=== PATIENT | female | born 1990 | race Caucasian/White ===

== ENCOUNTER 2020-07-30 15:49 | Outpatient (CLI) | payer OTHER ==
--- NOTE | 2020-07-31 11:03 | XRAY Report ---
PROCEDURE: Chest 2 View X-Ray INDICATIONS: TB TESTING TECHNIQUE: 2 view(s) of the chest. COMPARISON: None. FINDINGS: Surgical changes and devices: None. Lungs and pleura: No pleural effusions or pneumothorax. Lungs are clear. Mediastinum: Mediastinal contours are normal. Heart size is normal. Bones and chest wall: No suspicious bony abnormalities. Soft tissues appear unremarkable. IMPRESSION: No evidence of acute or chronic tuberculosis, the study is normal for age. Reviewed by: Aubrey Paredes MD on 07/31/2020 11:02 AM PDT Approved by: Aubrey Paredes MD on 07/31/2020 11:02 AM PDT Station ID: [id number]
== END 2020-07-30 15:50 | disposition home or self-care (01) ==
LOC: LAB 15:49 → DI 15:50
PROVIDERS: ATTEND Emergency Medicine
DX: Z02.1 Encounter for pre-employment examination (principal); Z11.1 Encounter for screening for respiratory tuberculosis
CPT/HCPCS: 86317; 86787

== ENCOUNTER 2020-09-01 12:43 | Outpatient (CLI) | payer OTHER ==
--- NOTE | 2020-09-01 13:54 | Ultrasound Report ---
PROCEDURE: OB First Trimester w/TV INDICATIONS: POSITIVE TEST OUTSIDE/PRIOR DATING DATA: Last menstrual period (LMP): 07/04/2020. LMP-based estimated date of delivery (EARLINE): 04/10/2021. First dating scan (date and location): 09/01/2020. Estimated date of delivery (EARLINE) from first dating scan: 04/25/2021. The below data below was generated using the sonographically derived EARLINE of 04/25/2021 TECHNIQUE: Real-time scanning was performed of the fetus and maternal pelvic organs, with image documentation. Endovaginal scanning was also performed to better visualize the fetus and maternal ovaries. COMPARISON: None. FINDINGS: Embryo: There is a intrauterine gestational sac containing a pole with estimated sonographic g estational age of approximately 6 weeks and 2 days based off crown-rump length measuring approximatel y 0.49 cm. Gestational sac appears slightly irregular. A yolk sac is visualized. No perigestational h emorrhage seen. Heart rate: No cardiac activity visualized. Measurement variability in dating: +/- 4 weeks by LMP, +/- 7 days by mean sac diameter (use before 6 weeks gestation if crown-rump length not able to be measured), +/- 5 days by crown-rump length (6-12 weeks gestation). Maternal organs: Bilateral maternal ovaries appear unremarkable. Incidental 2.0 cm right corpus lutea l cyst.. Maternal cervix appears long and closed. IMPRESSION: 1. Single intrauterine gestation with estimated sonographic gestational age of approximately 6 weeks and 2 days based off crown-rump length measurement. No detectable cardiac activity on today's s tudy. Reported quantitative hCG levels have been increasing. Recommend continued clinical and laborat ory surveillance. Recommend follow-up ultrasound in approximately 12-14 days to document expected pro gression of a normal intrauterine . Reviewed by: Sean Freeman MD on 09/01/2020 1:53 PM PDT Approved by: Sean Freeman MD on 09/01/2020 1:53 PM PDT Station ID: [id number]
== END 2020-09-01 12:44 | disposition home or self-care (01) ==
LOC: DI 12:43
PROVIDERS: ATTEND Obstetrics & Gynecology
DX: Z32.01 Encounter for pregnancy test, result positive (principal)

== ENCOUNTER 2020-10-31 16:48 | Outpatient (CLI) | payer OTHER ==
[2020-10-31 17:17] LABS: HCT - HEMATOCRIT 40.9 % (37.0-47.0); HGB - HEMOGLOBIN 13.6 g/dL (12.0-16.0); MEAN CORPUSCULAR HEMOGLOBIN 28.5 pg (27.0-31.0); MEAN CORPUSCULAR HGB CONC 33.3 g/dL (32.0-36.0); MEAN CORPUSCULAR VOLUME 85.6 fL (81.0-99.0); MEAN PLATELET VOLUME 10.6 fL (7.9-10.8); RED BLOOD COUNT 4.78 10^6/uL (4.20-5.40); RED CELL DISTRIBUTION WIDTH 13.4 % (12.0-15.0)
[2020-10-31 17:31] LABS: ALBUMIN 4.3 g/dL (3.2-5.5); ALBUMIN/GLOBULIN RATIO 1.4 (1.0-2.2); BILIRUBIN,TOTAL 0.4 mg/dL (0.2-1.0); CALCIUM 9.2 mg/dL (8.5-10.3); CREATININE 0.8 mg/dL (0.4-1.0); POTASSIUM 3.8 mmol/L (3.5-5.0); TOTAL PROTEIN 7.4 g/dL (6.7-8.2)
[2020-10-31 17:49] LABS: THYROID STIMULATING HORMONE 2.28 uIU/mL (0.34-5.60)
[2020-10-31 17:51] LABS: FREE T4 (FREE THYROXINE) 0.75 ng/dL (0.58-1.64)
[2020-10-31 17:55] LABS: PROLACTIN 11.95 ng/mL
[2020-10-31 21:30] LABS: ESTIMATED AVERAGE GLUCOSE 105 mg/dL (70-100); HEMOGLOBIN A1c% 5.3 % (4.27-6.07)
== END 2020-10-31 16:49 | disposition home or self-care (01) ==
LOC: LAB 16:48
PROVIDERS: ATTEND Obstetrics & Gynecology
DX: Z00.00 Encounter for general adult medical examination without abnormal findings (principal); Z13.1 Encounter for screening for diabetes mellitus; O03.9 Complete or unspecified spontaneous abortion without complication; Z13.21 Encounter for screening for nutritional disorder; Z13.29 Encounter for screening for other suspected endocrine disorder
CPT/HCPCS: 36415; 80053; 82306; 83036; 84146; 84439; 84443; 84702; 85027; 86762

== ENCOUNTER 2021-06-27 13:47 | Outpatient (CLI) | payer OTHER | END 2021-06-27 13:48 | disposition home or self-care (01) | LOC: LAB 13:47 | PROVIDERS: ATTEND Obstetrics & Gynecology | DX: Z32.01 Encounter for pregnancy test, result positive (principal) | CPT/HCPCS: 36415; 84702 ==

== ENCOUNTER 2021-07-07 08:59 | Outpatient (CLI) | payer OTHER | END 2021-07-07 09:00 | disposition home or self-care (01) | LOC: LAB 08:59 | PROVIDERS: ATTEND Obstetrics & Gynecology | DX: Z32.01 Encounter for pregnancy test, result positive (principal) | CPT/HCPCS: 36415; 84702 ==

== ENCOUNTER 2021-07-14 10:10 | Outpatient (CLI) | payer OTHER ==
--- NOTE | 2021-07-15 10:38 | Ultrasound Report ---
PROCEDURE: OB First Trimester w/TV INDICATIONS: VAG BLEEDING IN OUTSIDE/PRIOR DATING DATA: Last menstrual period (LMP): 05/28/2021. LMP-based estimated date of delivery (EARLINE): 03/04/2022. TECHNIQUE: Real-time scanning was performed of the fetus and maternal pelvic organs, with image documentation. Endovaginal scanning was also performed to better visualize the fetus and maternal ovaries. COMPARISON: None from current . FINDINGS: Embryo: There is an intrauterine with a gestational sac and yolk sac demonstrated. The med n gestational sac diameter measures 1.2 cm corresponding to gestational age of 6 weeks 0 days. No dis crete pole identified. There is a small subchorionic hematoma measuring approximately 0.7 x 0.4 x 0.8 cm. Measurement variability in dating: +/- 4 weeks by LMP, +/- 7 days by mean sac diameter (use before 6 weeks gestation if crown-rump length not able to be measured), +/- 5 days by crown-rump length (6-12 weeks gestation). Maternal organs: There is a thick-walled cyst in the left ovary measuring up to 2.3 cm likely repres enting a corpus luteal cyst. The right ovary was not well seen. No definite adnexal masses. IMPRESSION: 1. Intrauterine with a gestational sac and yolk sac demonstrated. Mean sac diameter corresp onding to a gestational age of 6 weeks 0 days. No discrete pole identified which may be due to early or failure. Recommend clinical follow-up and a short-term repeat ultrasound if indicated. 2. Thick-walled cyst in the left ovary likely represents a corpus luteal cyst. Reviewed by: Lj Madsen MD on 07/15/2021 12:39 AM PDT Approved by: Lj Madsen MD on 07/15/2021 12:39 AM PDT Station ID: [id number]
== END 2021-07-14 10:11 | disposition home or self-care (01) ==
LOC: DI 10:10
PROVIDERS: ATTEND Nurse Practitioner Obstetrics & Gynecology
DX: O46.91 Antepartum hemorrhage, unspecified, first trimester (principal); N96 Recurrent pregnancy loss; O34.81 Maternal care for other abnormalities of pelvic organs, first trimester; N83.202 Unspecified ovarian cyst, left side; Z3A.01 Less than 8 weeks gestation of pregnancy

== ENCOUNTER 2021-07-30 10:21 | Outpatient (CLI) | payer OTHER ==
[2021-07-30 11:20] LABS: ESTIMATED AVERAGE GLUCOSE 108 mg/dL (70-100); HEMOGLOBIN A1c% 5.4 % (4.27-6.07)
[2021-07-30 11:36] LABS: THYROID STIMULATING HORMONE 2.38 uIU/mL (0.34-5.60)
[2021-07-30 11:40] LABS: FREE T4 (FREE THYROXINE) 0.84 ng/dL (0.58-1.64)
[2021-08-17 16:08] LABS: CHROMOSOME CELLS ANALYZED 5 (.); CHROMOSOME CELLS COUNTED 20 (.); CHROMOSOME CELLS KARYOTYPED 4 (.); CHROMOSOME CYTOGENETIC RESULT Comment: (.); CHROMOSOME DIRECTOR REVIEW Comment: (.); CHROMOSOME INTERPRETATION Comment: (.); CHROMOSOME SPECIMEN TYPE Comment: (.); GTG BAND RESOLUTION ACHIEVED 500 (.)
== END 2021-07-30 10:22 | disposition home or self-care (01) ==
LOC: LAB 10:21
PROVIDERS: ATTEND Nurse Practitioner Obstetrics & Gynecology
DX: O02.1 Missed abortion (principal); N96 Recurrent pregnancy loss
CPT/HCPCS: 36415; 81241; 81599; 83020; 83036; 84439; 84443; 84702; 85027; 85598; 85613; 85730; 85732; 86147; 88230; 88262

== ENCOUNTER 2021-08-14 13:57 | Outpatient (CLI) | payer OTHER | END 2021-08-14 13:58 | disposition home or self-care (01) | LOC: LAB 13:57 | PROVIDERS: ATTEND Nurse Practitioner Obstetrics & Gynecology | DX: O02.1 Missed abortion (principal) | CPT/HCPCS: 36415; 84702 ==

== ENCOUNTER 2021-10-07 13:19 | Outpatient (CLI) | payer OTHER | END 2021-10-07 13:20 | disposition home or self-care (01) | LOC: LAB 13:19 | PROVIDERS: ATTEND Nurse Practitioner Obstetrics & Gynecology | DX: N96 Recurrent pregnancy loss (principal) | CPT/HCPCS: 36415; 84702 ==

== ENCOUNTER 2021-10-10 18:46 | Outpatient (CLI) | payer OTHER | END 2021-10-10 18:47 | disposition home or self-care (01) | LOC: LAB 18:46 | PROVIDERS: ATTEND Nurse Practitioner Obstetrics & Gynecology | DX: N96 Recurrent pregnancy loss (principal) | CPT/HCPCS: 36415; 84702 ==

== ENCOUNTER 2022-02-04 14:03 | Outpatient (CLI) | payer OTHER ==
--- NOTE | 2022-02-04 16:34 | Ultrasound Report ---
PROCEDURE: OB F/U or Repeat INDICATIONS: SUPERVISION OF OUTSIDE/PRIOR DATING DATA: Last menstrual period (LMP): 09/11/2021. LMP-based estimated date of delivery (EARLINE): 06/26/2022. First dating scan: 11/20/2021. Estimated date of delivery (EARLINE) from first dating scan: 06/10/2022 (working EARLINE). TECHNIQUE: Real-time scanning was performed of the fetus, with image documentation. COMPARISON: 01/21/2022 FINDINGS: General: A single living intrauterine gestation is present. Presentation: Transverse Placenta: Placental position is anterior, without previa. Amniotic fluid index: 8 cm, at the lower limit of normal heart rate: 137 beats per minute. Maternal cervical canal: 6.3 cm long; normal length is 2.5 cm or more. Estimated gestational age today is 22 weeks. Four-chamber view is well visualized. The nuchal fold is prominent at 7 to 8 mm. Right renal pelvis measures 6 mm. Left renal pelvis measures 6.2 mm. Profile is within normal limits. IMPRESSION: Living intrauterine gestation with working EARLINE of 06/10/2022. Four-chamber view and profile are well seen on today's study. The nuchal fold is mildly increased in size measuring 7 to 8 mm, however today's measurement is consi dered later in the second trimester. Correlation with maternal risk factors and other testing is sugg ested to determine the actual risk of aneuploidy. Bilateral renal pelviectasis. Consider follow-up imaging after 32 weeks. Reviewed by: Dez Trujillo MD on 02/04/2022 4:33 PM PST Approved by: Dez Trujillo MD on 02/04/2022 4:33 PM PST Station ID: [id number]
== END 2022-02-04 14:04 | disposition home or self-care (01) ==
LOC: DI 14:03
PROVIDERS: ATTEND Nurse Practitioner Obstetrics & Gynecology
DX: Z36.89 Encounter for other specified antenatal screening (principal); O99.891 Other specified diseases and conditions complicating pregnancy; N13.30 Unspecified hydronephrosis; Z3A.22 22 weeks gestation of pregnancy

== ENCOUNTER 2022-02-18 16:28 | Outpatient (CLI) | payer OTHER | END 2022-02-18 16:29 | disposition critical access hospital (66) | LOC: EMS 16:28 | DX: O98.512 Other viral diseases complicating pregnancy, second trimester (principal); O99.891 Other specified diseases and conditions complicating pregnancy; R00.0 Tachycardia, unspecified; R06.02 Shortness of breath; Z3A.26 26 weeks gestation of pregnancy | CPT/HCPCS: A0425; A0429 ==

== ENCOUNTER 2022-02-18 16:56 | Emergency (ER) | payer OTHER ==
[2022-02-18] MEDS ORDERED: SODIUM CHLORIDE 0.9% 1,000 ML IV STA (17:01)
[2022-02-18] MEDS ORDERED: IPRATROPIUM/ALBUTEROL 3 ML NEB INH STA (17:01)
--- NOTE | 2022-02-18 17:04 | ED Physician Documentation ---
History of Present Illness - Stated complaint Stated Complaint: FLU+/SOA - History obtained from History obtained from: Patient - Additonal information Additional information: The patient comes to the emergency department chief complaint of shortness of breath and not feeling well for the last couple of days. She states her young child was sick and she believes she got sick from the child. The patient was seen over at the walk-in clinic and tested positive for influenza A. She was felt to be in "respiratory distress" at the clinic and the PA there called EMS to bring her here. The medics state that the patient has been tachycardic in route but actually, has been breathing comfortably and her oxygen saturation has been in the mid 90s the entire trip. The patient states that she mainly feels just fatigued and short of breath when she gets up to walk around. She is also had body aches, a feeling of fever and chills, and sore throat. She has been coughing a little. The patient states she is otherwise healthy and has no und erlying lung problems. She is not a smoker. Patient is 24 weeks . She states she last felt the baby move a couple of hours ago. No known problems with the . Review of Systems Constitutional: reports: Fever, Chills, Myalgias, Fatigue Eyes: reports: Reviewed and negative Ears: reports: Reviewed and negative Nose: reports: Rhinorrhea / runny nose, Congestion Throat: reports: Sore throat Cardiac: reports: Reviewed and negative Respiratory: reports: Dyspnea, Cough GI: reports: Reviewed and negative : reports: Reviewed and negative Skin: reports: Reviewed and negative Musculoskeletal: reports: Reviewed and negative Neurologic: reports: Reviewed and negative Psychiatric: reports: Reviewed and negative Endocrine: reports: Reviewed and negative Immunocompromised: reports: Reviewed and negative PD PAST MEDICAL HISTORY - Present Medications Home Medications: Ambulatory Orders Medication Instructions Recorded Confirmed Albuterol Sulf [Ventolin Hfa 1 - 2 puffs INH Q4HR PRN #1 each 02/18/22 Inhaler] - Allergies Allergies/Adverse Reactions: Allergies Allergy/AdvReac Type Severity Reaction Status Date / Time No Known Drug Allergies Allergy Verified 02/18/22 17:10 PD ED PE NORMAL - Vitals Vital signs reviewed: Yes - General General: Alert and oriented X 3, No acute distress, Well developed/nourished - HEENT HEENT: Atraumatic, PERRL, EOMI, Moist mucous membranes - Neck Neck: Supple, no meningeal sign - Cardiac Cardiac: RRR, No murmur, Strong equal pulses - Respiratory Respiratory: No respiratory distress, Other (Mild bilateral expiratory wheezes) - Abdomen Abdomen: Soft, Non tender, Non distended - Derm Derm: Normal color, Warm and dry, No rash - Extremities Extremities: No deformity, No edema - Neuro Neuro: Alert and oriented X 3, 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 She had already been given 500 mg of Tylenol At the walk-in, and medics had reported a temperature of 100. 0.6 in route. However, the patient was afebrile here. She was also treated with a DuoNeb, given her sense of dyspnea and the mild wheezing. Chest x-ray was performed with a shielded abdomen. CXR was unremarkable. Pt was feeling better on re-evaluation. We have discussed symptomatic management at home, the expected duration and self-limited nature of this illness, and the [facility] indications for return. Departure - Departure Disposition: 01 Home, Self Care Clinical Impression: Influenza A Condition: Stable Instructions: ED Flu Prescriptions: Albuterol Sulf [Ventolin Hfa Inhaler] 1 - 2 puffs INH Q4HR PRN #1 each PRN Reason: Shortness Of Air/Wheezing Comments: Your chest x-ray looks good. Your oxygen saturation and your blood is very good at this point in time and you are actually moving air well through your lungs. You are mildly wheezy and so we did give you a breathing treatment here. For the same reason, a prescription for an inhaler has been electronically tr ansmitted to the [facility] in [place] at your request. You were diagnosed with influenza A at the walk-in clinic. As a viral illness, this will resolve on its own, though this can take anywhere from several days to a couple of weeks. Your symptoms are very typical of this illness. Your baby at this point in time is doing well, and has displayed good heart rate. Please continue to follow-up with your OB specialist for further care. If you develop fevers, you may take Tylenol 650 mg every 4 hours as needed. Please be sure you are drinking plenty of fluids. If you begin to become severely short of breath or feel like you are significantly worsening, you should seek medical reevaluation. Discharge Date/Time: 02/18/22 18:18
[2022-02-18 18:20] VITALS: BP 122/79
--- NOTE | 2022-02-18 19:10 | XRAY Report ---
PROCEDURE: Chest 1 View X-Ray INDICATIONS: dyspnea, influenza TECHNIQUE: One view of the chest was acquired. COMPARISON: None. FINDINGS: Surgical changes and devices: None. Lungs and pleura: No pleural effusions or pneumothorax. Lungs are clear. Low lung volumes accentua te the pulmonary heart size and pulmonary interstitium Mediastinum: Mediastinal contours appear normal. Heart size is normal. Bones and chest wall: No suspicious bony lesions. Overlying soft tissues appear unremarkable. IMPRESSION: No acute cardiopulmonary findings Reviewed by: Victorino Hudson MD on 02/18/2022 6:09 PM [facility] Approved by: Victorino Hudson MD on 02/18/2022 6:09 PM [facility] Station ID: [id number]
== END 2022-02-18 18:18 | disposition home or self-care (01) ==
LOC: ED 16:56
DX: O98.512 Other viral diseases complicating pregnancy, second trimester (principal); J10.1 Influenza due to other identified influenza virus with other respiratory manifestations; Z3A.24 24 weeks gestation of pregnancy
CPT/HCPCS: 36415; 93005; 94640; 99283; 99284

== ENCOUNTER 2022-02-26 09:09 | Outpatient (CLI) | payer OTHER ==
[2022-02-26 10:20] LABS: HCT - HEMATOCRIT 38.1 % (37.0-47.0); HGB - HEMOGLOBIN 12.3 g/dL (12.0-16.0); MEAN CORPUSCULAR HEMOGLOBIN 27.6 pg (27.0-31.0); MEAN CORPUSCULAR HGB CONC 32.3 g/dL (32.0-36.0); MEAN CORPUSCULAR VOLUME 85.6 fL (81.0-99.0); MEAN PLATELET VOLUME 10.4 fL (7.9-10.8); RED BLOOD COUNT 4.45 10^6/uL (4.20-5.40); RED CELL DISTRIBUTION WIDTH 14.4 % (12.0-15.0); WHITE BLOOD COUNT 10.5 x10^3/uL (4.8-10.8)
[2022-02-26 10:50] LABS: FREE T4 (FREE THYROXINE) 0.72 ng/dL (0.58-1.64)
== END 2022-02-26 09:10 | disposition home or self-care (01) ==
LOC: LAB 09:09
PROVIDERS: ATTEND Nurse Practitioner Obstetrics & Gynecology
DX: O99.283 Endocrine, nutritional and metabolic diseases complicating pregnancy, third trimester (principal); Z36.9 Encounter for antenatal screening, unspecified
CPT/HCPCS: 36415; 82950; 84439; 84443; 85027

== ENCOUNTER 2022-04-28 13:06 | Outpatient (CLI) | payer OTHER ==
--- NOTE | 2022-04-28 14:37 | Ultrasound Report ---
PROCEDURE: OB F/U or Repeat INDICATIONS: BILATERAL RENAL PELVIECTASIS OUTSIDE/PRIOR DATING DATA: Last menstrual period (LMP): 09/11/2021. LMP-based estimated date of delivery (EARLINE): 06/18/2022. First dating scan (date and location): 11/20/2021. Estimated date of delivery (EARLINE) from first dating scan: 06/10/2022. The below data below was generated using the ultrasound EARLINE of 06/10/2022 TECHNIQUE: Real-time scanning was performed of the fetus, with image documentation and biometric measurements. Endovaginal scanning: Not performed COMPARISON: None. FINDINGS: General: A single living intrauterine gestation is present. Presentation: Vertex Placenta: Placental position is anterior, without previa. Amniotic fluid index: 17.9 cm, 72nd percentile for gestational age. heart rate: 131 beats per minute. Maternal cervical canal: 3.41 cm long; normal length is 2.5 cm or more. biometrics: Biparietal diameter: 8.487 m, 34 weeks 1 day Head circumference: 32.75 cm, 37 weeks 1 day Abdominal circumference: 33.02 cm, 37 weeks Femur length: 6.7 cm, 34 weeks 5 days Estimated gestational age from initial scan: not applicable. Composite gestational age from present scan: 33 weeks 6 days Estimated weight and percentile: 36 weeks 5 days Measurement variability in biometric dating: +/- 10 days from 12-20 weeks gestation, +/- 2 weeks from 20-30 weeks gestation, +/- 3 weeks at 30 weeks gestation or more. Other: Persistent pelvocaliectasis, measuring 0.98 cm on the right and 0.95 cm on the left. Sto mach/abdomen and chest/diaphragm are normal. Urinary bladder appears normal. IMPRESSION: Persistent bilateral pelvocaliectasis, progressed from prior. Reviewed by: Jn Barros on 04/28/2022 2:36 PM PDT Approved by: Jn Barros on 04/28/2022 2:36 PM PDT Station ID: [id number]
== END 2022-04-28 13:07 | disposition home or self-care (01) ==
LOC: DI 13:06
PROVIDERS: ATTEND Nurse Practitioner Obstetrics & Gynecology
DX: O35.EXX0 Maternal care for other (suspected) fetal abnormality and damage, fetal genitourinary anomalies, not applicable or unspecified (principal); Z3A.36 36 weeks gestation of pregnancy; O99.283 Endocrine, nutritional and metabolic diseases complicating pregnancy, third trimester
CPT/HCPCS: 36415; 84439; 84443

== ENCOUNTER 2022-04-28 13:59 | Outpatient (CLI) | payer OTHER ==
[2022-04-28 15:16] LABS: THYROID STIMULATING HORMONE 1.16 uIU/mL (0.34-5.60)
[2022-04-28 15:22] LABS: FREE T4 (FREE THYROXINE) 0.81 ng/dL (0.58-1.64)
== END 2022-04-28 14:00 | disposition home or self-care (01) ==
LOC: LAB 13:59
PROVIDERS: ATTEND Nurse Practitioner Obstetrics & Gynecology
DX: O99.283 Endocrine, nutritional and metabolic diseases complicating pregnancy, third trimester (principal)
CPT/HCPCS: 36415; 84439; 84443

== ENCOUNTER 2022-06-02 21:26 | Inpatient (IN) | payer OTHER ==
[2022-06-02 22:19] LABS: RUPTURE OF MEMBRANES PLUS NEGATIVE (NEGATIVE)
[2022-06-02] MEDS ORDERED: hydrALAZINE INJ 20 MG/ML VIAL IVP PRN ×2 (22:32)
[2022-06-02] MEDS ORDERED: TRANEXAMIC ACID IN NACL 1,000 MG/100 ML BAG IV PRN (22:32)
[2022-06-02] MEDS ORDERED: TERBUTALINE 1 MG/ML VIAL SUBQ PRN (22:32)
[2022-06-02] MEDS ORDERED: METHYLERGONOVINE 0.2 MG/ML VIAL IM PRN (22:32)
[2022-06-02] MEDS ORDERED: CARBOPROST TROMETHAMINE 250 MCG/ML AMP IM PRN (22:32)
[2022-06-02] MEDS ORDERED: SODIUM CHLORIDE FLUSH 0.9% 10 ML SYRINGE IVP PRN (22:32)
[2022-06-02] MEDS ORDERED: OXYTOCIN 10 UNIT/ML VIAL IM PRN (22:32)
[2022-06-02] MEDS ORDERED: LABETALOL 20 MG/4 ML SYRINGE IVP PRN ×3 (22:32)
[2022-06-02] MEDS ORDERED: OXYTOCIN/SODIUM CHLORIDE 500 ML IV PRN (22:32)
[2022-06-02] MEDS ORDERED: NIFEdipine 10 MG CAPSULE PO PRN (22:32)
[2022-06-02] MEDS ORDERED: miSOPROStoL 200 MCG TABLET BC PRN (22:32)
[2022-06-02] MEDS ORDERED: miSOPROStoL 200 MCG TABLET PR PRN (22:32)
[2022-06-02] MEDS ORDERED: lidocaine 1% 20 ML MDV ID PRN (22:32)
[2022-06-02] MEDS ORDERED: fentaNYL 100 MCG/2 ML VIAL IVP PRN (22:32)
[2022-06-02] MEDS ORDERED: SODIUM CHLORIDE FLUSH 0.9% 10 ML SYRINGE IVP SCH (23:00)
[2022-06-02] MEDS ORDERED: OXYTOCIN/SODIUM CHLORIDE 500 ML IV SCH (23:00)
--- NOTE | 2022-06-02 23:40 | PROVIDER PROGRESS NOTE ---
- HPI Chief Complaint: Leakage of vaginal fluid Current : Current EDU 06/10/22 Gestation 38 Weeks and 6 Days 5 Para 2 Vital Signs Temperature 36.9 C 06/02/22 21:55 Heart Rate 81 06/02/22 21:55 Respiratory Rate 22 06/02/22 21:55 Temperature 36.9 C 06/02/22 21:58 Heart Rate 81 06/02/22 21:58 Respiratory Rate 22 06/02/22 21:58 Blood Pressure 138/61 H 06/02/22 21:58 O2 Saturation 100 06/02/22 21:58 If not protocol: Oxygen Flow, liters/minute 0 06/02/22 21:58 - Procedures OB Procedure Performed: NST Diagnosis/Indication for NST: Other NST Procedure: NST Procedure Start Date 06/02/22 Start Time 21:56 Patient States Movement Yes - Plan Plan: Melania presents to [facility] with c/o vaginal leakage of clear fluid at 2100 this evening. She reports feeling a big gush and presented for evlaution. She denies vaginal bleeding. Reports occasional mild contractions but nothing consistent or painful. She reports +FM. NST reactive. FHR baseline 130s, moderate variability, + accels, no decels Contractions palpate mild every 3-7 minutes with soft resting tone Nitrizine + ROM+ negative SVE 4/75/-2, vertex. Pt continues to leak large amount of clear vaginal fluid and will be admitted for SROM. Pt verbalized understanding and agrees to above plan. She denies further questions or concerns at this time. FINAL DIAGNOSIS: SROM at term gestation
[2022-06-02] MEDS: LACTATED RINGERS 1,000 ML IV SCH (23:43)
[2022-06-02 23:45] LABS: BASOPHILS % (AUTO) 0.2 %; EOSINOPHILS # (AUTO) 0.1 10^3/uL (0.0-0.7); EOSINOPHILS % (AUTO) 0.5 %; HCT - HEMATOCRIT 37.6 % (37.0-47.0); HGB - HEMOGLOBIN 12.3 g/dL (12.0-16.0); LYMPHOCYTES # (AUTO) 2.7 10^3/uL (1.5-3.5); LYMPHOCYTES % (AUTO) 19.9 %; MEAN CORPUSCULAR HEMOGLOBIN 27.9 pg (27.0-31.0); MEAN CORPUSCULAR HGB CONC 32.7 g/dL (32.0-36.0); MEAN CORPUSCULAR VOLUME 85.3 fL (81.0-99.0); MEAN PLATELET VOLUME 11.8 fL (7.9-10.8); MONOCYTES # (AUTO) 0.6 10^3/uL (0.0-1.0); MONOCYTES % (AUTO) 4.2 %; NEUTROPHILS # (AUTO) 10.3 10^3/uL (1.5-6.6); NEUTROPHILS % (AUTO) 74.8 %; PLT - PLATELET COUNT 170 10^3/uL (130-450); RED BLOOD COUNT 4.41 10^6/uL (4.20-5.40); RED CELL DISTRIBUTION WIDTH 15.1 % (12.0-15.0); WHITE BLOOD COUNT 13.7 x10^3/uL (4.8-10.8)
[2022-06-02] MEDS ORDERED: ROPIVACAINE 0.2% 200 MG/100 ML BAG EP ONE (23:55)
--- NOTE | 2022-06-03 00:01 | HISTORY & PHYSICAL EXAMINATION ---
Admit History - Visit Reason Visit Reason: Membranes rupture - : 5 Parity: 2 Premature: 0 Ectopic: 0 : 2 Care: positive: [facility] Risk/History: positive: None Complications This : positive: None Smoking Status: Never smoker - Mother's Labs Mother's Blood Type: positive: O Mother's RH: positive: Positive GBS: positive: Group B Step Negative Rubella Status: positive: Immune Meds/Allgy - Home Medications Home Medications: Ambulatory Orders Medication Instructions Recorded Confirmed Albuterol Sulf [Ventolin Hfa 1 - 2 puffs INH Q4HR PRN #1 each 02/18/22 Inhaler] - Allergies Allergies/Adverse Reactions: Allergies Allergy/AdvReac Type Severity Reaction Status Date / Time No Known Drug Allergies Allergy Verified 02/18/22 17:10 Review of Systems - Constitutional Constitutional: denies: Fatigue, Fever, Chills - Eyes Eyes: denies: Blurred vision, Spots in vision, Dipolpia - Cardiovascular Cariovascular: reports: Edema. denies: Irregular heart rate, Palpitations, Chest pain - Respiratory Respiratory: denies: Cough, Wheezing, SOB at rest - Gastrointestinal Gastrointestinal: denies: Constipation, Diarrhea, Nausea, Vomiting - Genitourinary Genitourinary: denies: Dysuria - Musculoskeletal Musculoskeletal: denies: Back pain - Integumentary Integumentary: denies: Rash, Pruritis - Neurological Neurological: denies: Headache - Psychiatric Psychiatric: denies: Depression, Anxiety Physical - Abdominal Exam Vital Signs: Temp Pulse Resp BP Pulse Ox O2 Flow Rate 36.9 C 81 22 138/61 H 100 0 06/02/22 21:58 06/02/22 21:58 06/02/22 21:58 06/02/22 21:58 06/02/22 21:58 06/02/22 21:58 Contraction Frequency (min/apart): 3-7 Contraction Intensity: positive: Mild Uterine Resting Tone: positive: Soft - Monitoring Heart Rate Baseline: 135 Strip Review: positive: Category I - Presentation Presentation: positive: Vertex - Vaginal Exam Membranes: positive: Membranes ruptured Dilation (in cm): 4 Effacement (%): 75 Station: positive: -2 - Speculum Exam Speculum Exam Performed: positive: No Findings: positive: Gross leak, Nitrazine Plan for Labor - Plan For Labor I expect patient to be DC'd or transferred within 96 hours.: Yes Plan for Labor: HPI: Melania is a 31yo @ 38.6wks gestation by 11.1wk U/S who presents to [facility] with c/o leakage of clear fluid from her vagina that started as a large gush at 2100 this evening. She denies vaginal bleeding. She reports contractions have been intermittent for the past several days. She felt stronger contractions early this morning but they decreased in intensity throughout the day today. She states the contractions she is experiencing now feel mild to her. She reports +FM. She has been a patient of [facility] for the duration of her which has remained uncomplicated. Her has remained uncomplicated overall however there was noted to be bilateral renal pelviectasis on her 20week ultrasound that persisted on her follow up ultrasound at 34 weeks. She will be admitted to [facility] for active management secondary to spontaneous rupture of membranes. She is supported by her mom today. Dating criteria: LMP: 09/11/2021 EARLINE by LMP: 06/18/2022 Initial U/S @ 11.1wks dates with final EARLINE 06/10/2022 Serial exams - agree claim inspector Hx: Term NSVB x 2. SAB x2. Last pap 11/2019, No hx of abnormals. Medical Hx: Anxiety/depression, hypothyroidism, migraines, obesity Surgical Hx: none Family Hx: HTN- mother, MGF, MGM, PGM, PGF; Diabetes - MGM, PGM, PGF Meds: PNV, 50mcg levothyroxine, propranolol 40mg PO daily for migraines, Sertraline 50mg daily Allergies: None known Social: , lives with Kate who is active duty [employer] and is currently deployed. 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 No tobacco, ETOH or recreational drug use. Caffeine intake -minimal. course: -O positive, antibody negative -Rubella immune -Genetic screening: invitae NIPS - negative -COVID-19 vaccine x 2 and booster 06/2021 -Tdap vaccine - 04/2022 -Influenza vaccine - 12/2021 -20.0wks FAS WNL with exception of bilateral renal pyelocaliectasis and poor visualization of facial profile and cardiac 4 chamber view not well visualized. Size c/w dating (EFW 86%tile). -22.0wks Completion FAS WNL. Nuchal fold mildy increased measuring 7-8cm. Bilateral renal pelviectasis. -33.6wks Renal pelviectasis R 9.8mm, L 9.5mm -Glucola 131 -GBS negative Physical exam: Normocephalic, atraumatic Heart RRR w/o M/G/R Lungs CTAB Abdomen gravid, soft, nontender EFW 3400g NST reactive. FHR baseline 135, moderate variability, + accels, no decels Contractions palpate mild every 3-7 minutes with soft resting tone SVe 4/75/-2, vertex Grossly ruptured membranes Bilateral LEs mild edema Mood is good Assessment: 31yo @ 38.6wks gestation by 11.1wk U/S SROM GBS neg FHR Category I Plan: Admit for active management. Initial pitocin with titration per protocol for active management of labor. Epidural per maternal request. Continuous monitoring. Anticiapte .
[2022-06-03] MEDS ORDERED: OXYTOCIN/SODIUM CHLORIDE 500 ML IV SCH (01:00)
[2022-06-03] MEDS ORDERED: ePHEDrine 50 MG/ML VIAL IVP PRN (01:04)
[2022-06-03] MEDS ORDERED: NALOXONE 0.4 MG/ML VIAL IVP PRN (01:04)
[2022-06-03] MEDS ORDERED: ROPIVACAINE 0.2% 200 MG/100 ML BAG EP PRN (01:04)
--- NOTE | 2022-06-03 01:04 | ANESTHESIA ---
Pre-Anesthesia VS, & Labs - Diagnosis active labor - Procedure vaginal delivery Vital Signs: Temp Pulse Resp BP Pulse Ox O2 Flow Rate 36.9 C 81 22 138/61 H 100 0 06/02/22 21:58 06/02/22 21:58 06/02/22 21:58 06/02/22 21:58 06/02/22 21:58 06/02/22 21:58 Height: 5 ft 4 in Weight (kg): 122.47 kg Body Mass Index: 46.3 BMI Classification: Morbidly Obese - NPO Last Fluid Intake: clear liquids - Is Patient ?: Yes - Lab Results Current Lab Results: Laboratory Tests 06/02/22 23:27: WBC 13.7 H, RBC 4.41, Hgb 12.3, Hct 37.6, MCV 85.3, MCH 27.9, MCHC 32.7, RDW 15.1 H, Plt Count 170, MPV 11.8 H, Neut # (Auto) 10.3 H, Lymph # (Auto) 2.7, Williams # (Auto) 0.6, Eos # (Auto) 0.1, Baso # (Auto) 0.0, Absolute Nucleated RBC 0.00, Nucleated RBC % 0.0 06/02/22 23:27: Blood Type O POSITIVE, Antibody Screen NEGATIVE Lab results reviewed: Yes Fish Bones: 06/02/22 23:27 Home Medications and Allergies Active Medications Carboprost Tromethamine (Carboprost Tromethamine 250 Mcg/Ml Amp) 250 mcg IM .ONCE PRN PRN Reason: Hemorrhage Fentanyl (Fentanyl 100 Mcg/2 Ml Vial) 50 mcg IVP Q1H PRN PRN Reason: Severe Pain (score 7-10) Hydralazine HCl (Hydralazine Inj 20 Mg/Ml Vial) 5 - 10 mg IVP Q20M PRN; Protocol PRN Reason: SBP> or= 160 OR DBP> or= 110 Hydralazine HCl (Hydralazine Inj 20 Mg/Ml Vial) 10 mg IVP .ONCE PRN; Protocol PRN Reason: SBP> or= 160 OR DBP> or= 110 Oxytocin/Sodium Chloride (Pitocin/Sodium Chloride) 500 mls @ 999 mls/hr IV PRN PRN; Protocol PRN Reason: POST- HEMORR PREVENTION Tranexamic Acid (Tranexamic 1,000 Mg/100ml-Nacl) 1,000 mg in 100 mls @ 600 mls/hr IV Q30M PRN PRN Reason: EBL >1200mL and within 3hr Lactated Ringer's (Lr) 1,000 mls @ 125 mls/hr IV .Q8H ROSA Last Admin: 06/02/22 23:43 Dose: 125 mls/hr Oxytocin/Sodium Chloride (Pitocin/Sodium Chloride) 500 mls @ 1 mls/hr IV TITR ROSA; Protocol Oxytocin/Sodium Chloride (Pitocin/Sodium Chloride) 500 mls @ 2 mls/hr IV TITR ROSA; Protocol Labetalol HCl (Labetalol 20 Mg/4 Ml Syringe) 20 - 80 mg IVP Q10M PRN; Protocol PRN Reason: SBP> or= 160 OR DBP> or= 110 Labetalol HCl (Labetalol 20 Mg/4 Ml Syringe) 20 mg IVP .ONCE PRN; Protocol PRN Reason: SBP> or= 160 OR DBP> or= 110 Labetalol HCl (Labetalol 20 Mg/4 Ml Syringe) 20 - 40 mg IVP Q10M PRN; Protocol PRN Reason: SBP> or= 160 OR DBP> or= 110 Lidocaine HCl (Lidocaine 1% 20 Ml Mdv) 20 ml ID .ONCE PRN PRN Reason: PERINEAL REPAIR Stop: 06/05/22 22:33 Methylergonovine Maleate (Methylergonovine 0.2 Mg/Ml Vial) 0.2 mg IM .ONCE PRN PRN Reason: Hemorrhage Misoprostol (Misoprostol 200 Mcg Tablet) 600 mcg BC .ONCE PRN PRN Reason: Hemorrhage Misoprostol (Misoprostol 200 Mcg Tablet) 800 mcg CO .ONCE PRN PRN Reason: Hemorrhage Nifedipine (Nifedipine 10 Mg Capsule) 10 - 20 mg PO Q20M PRN; Protocol PRN Reason: SBP> or= 160 OR DBP> or= 110 Oxytocin (Oxytocin 10 Unit/Ml Vial) 10 unit IM .ONCE PRN PRN Reason: Step One if no IV access. Sodium Chloride (Sodium Chloride Flush 0.9% 10 Ml Syringe) 10 ml IVP PRN PRN PRN Reason: NEEDED PER PROVIDER ORDERS Sodium Chloride (Sodium Chloride Flush 0.9% 10 Ml Syringe) 10 ml IVP Q8H ROSA Terbutaline Sulfate (Terbutaline 1 Mg/Ml Vial) 0.25 mg SUBQ .ONCE PRN PRN Reason: Tachystole PNV, certrizine, propranolol, synthroid Allergies/Adverse Reactions: Allergies Allergy/AdvReac Type Severity Reaction Status Date / Time No Known Drug Allergies Allergy Verified 02/18/22 17:10 Anes History & Medical History - Anesthetic History Family history of Anesthesia Complications: Denies Family history of Malignant Hyperthermia: Denies - Medical History Cardiovascular: reports: None Pulmonary: reports: None Gastrointestinal: reports: None Urinary: reports: None Neuro: reports: Headaches, Migraines Musculoskeletal: reports: Scoliosis Endocrine/Autoimmune: reports: HyPOthyroidism Blood Disorders: reports: None Skin: reports: None Smoking Status: Never smoker Psychosocial: reports: No issues indicated History of Cancer?: No - Obstetrical History : 5 Parity: 2 Events: reports: None Complications: reports: None Exam General: Alert, Oriented x3, Cooperative, No acute distress Dental: WNL Mouth Openin Fingerbreadth Neck Mobility: Normal Mallampati classification: II Thyromental Distance: 4-6 cm Mental/Cognitive Status: Alert/Oriented X3, Normal for patient Plan Anesthesia Type: Epidural Consent for Procedure(s) Verified and Reviewed: Yes Code Status: Attempt Resuscitation ASA classification: 2-Mild systemic disease Is this case an emergency?: No
[2022-06-03] MEDS ORDERED: ONDANSETRON 4 MG/2 ML VIAL IVP PRN (01:40)
[2022-06-03] MEDS: CALCIUM CARBONATE CHEW 500 MG TABLET PO SCH ×3 (01:53→22:02)
[2022-06-03] MEDS: LACTATED RINGERS 1,000 ML IV SCH ×2 (02:07→05:58)
--- NOTE | 2022-06-03 04:04 | PROVIDER PROGRESS NOTE ---
Labor Progress Note - Uterine Monitoring Uterine Monitoring Mode: positive: External toco Contraction Frequency (min/apart): 3-5 Contraction Intensity: positive: Mild to moderate Uterine Resting Tone: positive: Soft - Monitoring Monitor Mode: positive: External ultrasound Heart Rate Baseline: 130 Heart Rate Variability: positive: Moderate (6-25 bmp) Accelerations: positive: Present, 15x15 Decelerations: positive: None Strip Review: positive: Category I - Labor Progress Note Labor Progress Note/Additional Text: S: Pt comfortable with epidural right side lying. Feeling well overall. Mood is good. Mother supportive at the bedside. O: FHR baseline 130s, moderate variability, + accels, no decels presently I was called to the bedside secondary to prolonged late deceleration after initiation of pitocin with heart rate noted initially to be 70bpm. Pitocin was shut off. Bedside RN placed scalp electrode and heart rate recovered and was noted to be 130s. Pitocin was restarted 1 hour following deceleration and heart rate has remained reassuring with 130s baseline, + accels, no decels A: 31yo @ 39.0wks gestation by 11.1wk U/S Early labor SROM x 7hrs FHR Category I P: Continue pitocin for labor augmentation with titration per protocol Continuous monitoring Encouraged position changes in bed with peanut ball Anticipate .
[2022-06-03] MEDS: LEVOTHYROXINE 100 MCG TABLET PO SCH (07:21)
[2022-06-03] MEDS ORDERED: WITCH HAZEL/GLYCERIN 1 PAD TOP PRN (09:06)
[2022-06-03] MEDS ORDERED: HYDROCORTISONE 1% CREAM 28 GM TUBE PR PRN (09:06)
--- NOTE | 2022-06-03 09:34 | DELIVERY NOTE ---
Delivery Note - Labor Labor: positive: Augmented by oxytocin - Infant Delivery Method Delivery Method: positive: Spontaneous vaginal delivery - Presentation Presentation: positive: Vertex, Compound, RAVINDER - right occiput anterior - Nuchal Cord Nuchal Cord: positive: None - Amniotic Fluid Description Amniotic Fluid Description: positive: Moderate meconium - Episiotomy Type Episiotomy Type: positive: None - Laceration Laceration: positive: None - Delivery Outcome Delivery Outcome: positive: Livebirth - : positive: Placed in direct skin contact with mother, Bulb syringe, St imulated, Warmed, [place] used [place] sex: positive: Male - Placenta Placenta: positive: Intact, Spontaneous - Estimated Blood Loss Estimated Blood Loss (in cc): 250 - Post Delivery Events Post Delivery Events: positive: No post delivery events - Delivery Comments (Free Text/Narrative) Delivery Comments (Free Text/Narrative): Labor: This 31yo @ 39.0wks gestation by 11.1wk U/S presented on 06/02/2022 at 2000 with c/o vaginal leakage of clear fluid. Her ROM+ came back negative however she was noted to have grossly ruptured membranes upon arrival and a scheduled induction of labor in less than 24 hours so the decision was made to admit her and proceed with augmentation of labor. Cervix was 4/75/-2 and vertex. Epidural was placed per maternal request. FHR pattern demonstrated Category I pattern throughout labor with the exception of one prolonged deceleration at which time a scalp electrode was placed. FHR remained reassuring for the remainder of her labor course. Pitocin initiated for labor augmentation for a maximum infusion rate of 2mU/mL. Any leakage of vaginal fluid was noted to be clear. Pt progressed to c/c/+2 at 0830. : Normal of viable male on 06/03/2022 @ 0847. No nuchal cord. Right compound hand noted. Thick terminal meconium noted at time of delivery. The was placed on maternal abdomen, stimulated, dried, and placed skin to skin. Apgars were 9/9 at 1 and 5 minutes respectively. Pitocin administered via IV for hemostasis. The umbilical cord was allowed to stop pulsating at which time it was doubly clamped by CNM and cut by mother of the patient. 3VC. Cord blood was obtained. Fundal massage and gentle cord traction applied for active management of the third stage. Placenta delivered spontaneously and intact at 0856. EBL 250mL. There is noted to be meconium staining on placental membrane and umbilical cord as well. Fourth stage: Uterine fundus firm and there is no excessive bleeding. The perineum, vagina, and cervix were inspected and noted to be intact. Skin to skin contact initiated. Family bonding well. Both mother and baby were left in stable condition.
[2022-06-03] MEDS: ACETAMINOPHEN 500 MG TABLET PO SCH ×2 (10:09→17:36)
[2022-06-03] MEDS: IBUPROFEN 800 MG TABLET PO SCH ×3 (10:09→22:01)
[2022-06-03] MEDS: DOCUSATE SODIUM 100 MG CAPSULE PO SCH (22:01)
[2022-06-04] MEDS: ACETAMINOPHEN 500 MG TABLET PO SCH ×2 (02:03→10:43)
[2022-06-04] MEDS: IBUPROFEN 800 MG TABLET PO SCH ×2 (03:36→10:42)
[2022-06-04] MEDS: LEVOTHYROXINE 100 MCG TABLET PO SCH (08:16)
[2022-06-04 09:24] VITALS: BP 121/55
--- NOTE | 2022-06-04 10:06 | Discharge Plan ---
Discharge Plan Problem Reviewed?: Yes Disposition: Home, Self Care Condition: Good Diet: Regular Activity Restrictions: No Restrictions Shower Restrictions: No Driving Restrictions: No Weight Bearing: Full Weight Instruction Topics: Vaginal After No Smoking: If you smoke, Please STOP! Call for help.
--- NOTE | 2022-06-04 10:08 | DISCHARGE SUMMARY ---
Discharge Summary Condition at Discharge: Good Discharge Disposition: 01 Home, Self Care - HOSPITAL COURSE Hospital Course: Date of Admission: 06/02/2022 Date of Discharge: 06/04/2022 Diagnosis on Admission: 1. 31yo @ 38.6wks gestation by 11.1wk U/S 2. SROM 3. Early labor 4. GBS neg 5. FHR Category I DIagnosis on Discharge: 1. 31yo PPD#1 s/p TSVB viable male 2. 3. Normal recovery. Brief History: She is a patient of [facility] who presented on 06/02/2022 with c/o leakage of clear vaginal fluid. Her ROM+ was negative howev er she was nitrizine positive and had grossly ruptued membranes. Decision was made to augment her labor. She was give pitocin via IV for labor augmentation with a maximum infusion rate of 2mU/mL. She progressed to spontaneously deliver a viable male on 06/03/2022 @ 0847 over intact perineum. Apgars were 9/9 at 1 nd 5 minutes respectively. EBL 250mL. She has been doing well in her course. She is ambulating and tolerating a regular diet. She is urinating without difficulty and her lochia is normal. her pain is well controlled with oral medications. She is without difficulty and bonding well with her baby. She will be discharged home today on day #1 with instructions to continue taking her vitamin while and to continue taking ibuprofen and tylenol over the counter as needed for pain management. She intends to follow up with myself at [facility] in i1 week or sooner if needed. She has been given precautions to call if she has any worsening fevers, child, abdominal pain, increased vaginal bleeding or foul smelling vaginal lochia. physical exam: Normocephalic, atraumatic. Heart RRR w/o M/G?R, lungs CTAB, abdomen soft and nontender with fundus firm at U, perineum intact, light lochia rubra, bilateral LE's trace edema. mood is good. - ALLERGIES Allergies/Adverse Reactions: Allergies Allergy/AdvReac Type Severity Reaction Status Date / Time No Known Drug Allergies Allergy Verified 02/18/22 17:10 - MEDICATIONS Home Medications: Ambulatory Orders Medication Instructions Recorded Confirmed Albuterol Sulf [Ventolin Hfa 1 - 2 puffs INH Q4HR PRN #1 each 02/18/22 Inhaler] - LABS Result Diagrams: 06/02/22 23:27
[2022-06-04] MEDS: DOCUSATE SODIUM 100 MG CAPSULE PO SCH (10:42)
[2022-06-04] MEDS: CALCIUM CARBONATE CHEW 500 MG TABLET PO SCH (11:58)
--- NOTE | 2022-06-04 12:00 | Labor Flowsheet ---
Labor Flowsheet Datetime Report Generated by CPN: 06/04/2022 12:00 Datetime: 06/04/2022 09:16 VITAL SIGNS NBP Sys/[place]/Mean (mmHg): 121 : 55 : 71 Pulse: 86 Datetime: 06/04/2022 09:15 SpO2 (%): 100 Datetime: 06/03/2022 10:15 PAIN Pain Scale: 1 Pain Presence: Intermittent Pain Type: Cramping Pain Location: Abdomen Pain Goal: 7 Pain Relief Measures: Pain Medication Given Datetime: 06/03/2022 09:15 Stage of : Recovery Datetime: 06/03/2022 09:00 Respirations: 20 Datetime: 06/03/2022 08:56 Stage 2 Comments: placenta and cord mec stained Datetime: 06/03/2022 08:55 LaborFlag: Labor Datetime: 06/03/2022 08:47 Amniotic Fluid Color: Heavy Meconium Vaginal Exam Comments: Terminal mec Datetime: 06/03/2022 08:46 UTERINE ACTIVITY Monitor Mode: Palpation Frequency (min): 1.5-2.5 Quality: Strong Duration (sec): 50 Resting Tone (Palpate): Relaxed Comments: Indeterminate baseline. FHR 100-180, decreases during pushing with prompt resolution Datetime: 06/03/2022 08:35 STAGE 2 Pushing: Urge to Push Pushing Position: Pushing with Contractions; Pushing Lithotomy Datetime: 06/03/2022 08:32 I/O Interventions: [place] Discontinued Datetime: 06/03/2022 08:30 Monitor Interventions for UA: [place] Adjusted Pattern: Normal: <= 5 Contractions in 10 Minutes ASSESSMENT A Monitor Mode: Internal Scalp Electrode FHR Baseline Rate : 140 FHR Baseline Changes: No Baseline Change Variability: Moderate 6-25 bpm Accelerations: None Decelerations: Early; Variable Actions for Decelerations: Provider Notified Category: Category II VAGINAL EXAM Dilatation (cm): 10.0 Effacement (%): 100 Station: 2 Exam by: Heidi CNM PERSONAL TRAINER Datetime: 06/03/2022 08:13 Provider Reviewed Strip: Yes COMMUNICATION Communication: Provider at Bedside Provider Notified (Name): Heidi, CNM PERSONAL TRAINER Datetime: 06/03/2022 08:00 Pitocin Checklist: At Least 1 Acceleration of 15 bpm x 15 Seconds in 30 Minutes or Adequate Variabi lity; No More than 1 Late Deceleration Occurred in Past 30 Minutes; No More than 2 Variable Decelerat ions > 60 Seconds in Duration and decreasing >60 bpm in 30 minutes; No More than 5 Uterine Contractio ns in 10 Minutes for any 20 Minute Interval; Uterus Palpates Soft between Contractions Datetime: 06/03/2022 07:57 Communication Comments: Early decels, recent SVE, patient reporting pressure with contractions. Pr ovider OTW Datetime: 06/03/2022 07:53 Temperature (C): 36.8 Datetime: 06/03/2022 07:46 Patient Care Comments: 50mL concentrated urine Datetime: 06/03/2022 07:32 Anesthesia Level Check: T8- Ribs Anesthesia Comments: New bag Ropovicaine Datetime: 06/03/2022 07:25 Vaginal Bleeding: Normal Show Cervix, Consistency: Soft Cervix, Position: Midposition Datetime: 06/03/2022 06:31 Vital Sign Comments: Pain Coping: Dozing through UCs; awakes easily Datetime: 06/03/2022 06:30 Oxygen Method: Room Air Datetime: 06/03/2022 06:03 MATERNAL ASSESSMENT Level of Consciousness: Drowsy Datetime: 06/03/2022 05:26 Patient Position/Activity: Right Lateral Datetime: 06/03/2022 04:56 Medication Comments: preset epidural bolus in progress per pump Datetime: 06/03/2022 04:30 Temperature Route: Oral Contraction Comments: mild-mod per palpation Datetime: 06/03/2022 03:30 ANESTHESIA Anesthesia Plans: Epidural Epidural Positioning: Side Lying Datetime: 06/03/2022 02:57 Notification Reason: Status Update; Status Datetime: 06/03/2022 02:53 MEDICATIONS Pitocin (milliunits): Discontinued Datetime: 06/03/2022 01:53 Antiemetics/Antacids: Zofran (mg) @ (Annotations: 4 mg) Datetime: 06/03/2022 01:30 TEACHING Instructional Method: Verbal; Patient Instructed; Verbalized Understanding Plan of Care: Plan of Care Discussed; Vaginal Delivery; Labor Unit Routine: [place] to Room; Call Torres; Bed; Visiting Policy; Phone/Cell Phone Use; Unit Personnel ; Handwashing; Monitoring; IV Pumps; Safety/Fall Risk Prevention; Diet/Nutrition Services; Rout ine Time Outs; Medications Labor/Induction: Labor Stages; Augmentation; Tachysystole Interventions; Interventions; Activ ity Pain Management: Epidural; PRN Medications; Pain Scale/Goals; Comfort Measures Medications: Pitocin Datetime: 06/03/2022 01:00 Monitor Interventions for FHR: Ultrasound Adjusted Datetime: 06/03/2022 00:52 PATIENT CARE IV/Blood Work: IV Bolus Started Datetime: 06/03/2022 00:49 Epidural Procedure Other: Pump Started Datetime: 06/03/2022 00:43 Epidural Procedure: Loading Dose Datetime: 06/03/2022 00:24 PROCEDURE TIME OUT Procedure Verify: Correct Patient Identity; Correct Side and Site are Marked; Accurate Procedure Co nsent Form; Agreement on Procedure to be Done; Correct Patient Position; Safety Precautions Based on Patient History or Medication Use
== END 2022-06-04 11:30 | disposition home or self-care (01) | DRG 807 ==
LOC: WFO 21:26 → FBP 21:43 → WFO 22:32 → FBP 22:33
PROVIDERS: ADMIT Nurse Practitioner Obstetrics & Gynecology; ATTEND Nurse Practitioner Obstetrics & Gynecology
PROC: 10E0XZZ Delivery of Products of Conception, External Approach (ICD-10-PCS; principal; 2022-06-03)
DX: O77.0 Labor and delivery complicated by meconium in amniotic fluid (principal); Z37.0 Single live birth; O76 Abnormality in fetal heart rate and rhythm complicating labor and delivery; Z3A.39 39 weeks gestation of pregnancy; O99.214 Obesity complicating childbirth; E66.01 Morbid (severe) obesity due to excess calories
CPT/HCPCS: 59025; 84112; 85025; 86850; 86900; 86901; 99215; A9270; J7120